=== PATIENT | female | born 2000 | race African-American/Black ===

== ENCOUNTER 2022-06-24 10:42 | Emergency (ER) | payer BC, SELFPAY | END 2022-06-24 11:35 | disposition left against medical advice (07) | LOC: ED 11:36 | PROVIDERS: PCP Family Medicine | DX: Z53.29 Procedure and treatment not carried out because of patient's decision for other reasons (principal) ==

== ENCOUNTER 2024-02-18 10:27 | Outpatient (CLI) | payer OTHER, SELFPAY ==
--- NOTE | 2024-02-18 10:15 | CRLHL7_ITS ---
For Patients: As a result of the Cures Act, medical imaging exams and procedure reports are released immediately into your electronic medical record. You may view this report before your referring provider. If you have questions, please contact your health care provider. INDICATION: First trimester scan, establish dates. COMPARISON: None. TECHNIQUE: Real-time singer-scale imaging of the pelvis was performed. FINDINGS: Sonographic imaging demonstrates a single living intrauterine gestation. The embryo demonstrates a regular cardiac rate measuring 165 beats per minute. The embryo`s crown-rump length measurement of 2.2 cm corresponds to a gestational age of 8 weeks 6 days with a sonographic due date of 09/23/2024. There is a normal-appearing yolk sac. There are no gross abnormalities noted within the embryo at this early state of development. The gestational sac has a normal appearance. There is no evidence of a perigestational hemorrhage. The amount of fluid within the sac appears appropriate for gestational age. The cervix is closed. The myometrium appears normal. The ovaries are of normal size. Corpus luteal cyst left ovary. There are no suspicious fluid collections noted in the cul-de-sac. IMPRESSION: Single living intrauterine with sonographic gestational age 8 weeks 6 days and a sonographic due date of 09/23/2024. Dictated by Ephraim Pradhan MD @ 02/18/2024 11:06:28 AM (Electronically Signed)
== END 2024-02-18 10:28 | disposition home or self-care (01) ==
LOC: US 10:28
PROVIDERS: PCP Emergency Medicine; Visit Provider Advanced Practice Midwife
DX: Z34.91 Encounter for supervision of normal pregnancy, unspecified, first trimester (principal); Z3A.08 8 weeks gestation of pregnancy
CPT/HCPCS: 76817; 80306; 86592; 86703; 86704; 86706; 86762; 86787; 86803; 86850; 86900; 86901; 87086; 87186; 87340; 87491; 87591

== ENCOUNTER 2024-05-26 14:13 | Outpatient (CLI) | payer OTHER, SELFPAY | END 2024-05-26 14:14 | disposition home or self-care (01) | PROVIDERS: PCP Emergency Medicine; Visit Provider Obstetrics & Gynecology | DX: Z34.92 Encounter for supervision of normal pregnancy, unspecified, second trimester (principal); O99.012 Anemia complicating pregnancy, second trimester; Z3A.22 22 weeks gestation of pregnancy | CPT/HCPCS: 76805; 76817; 80306; 82728; 83021 ==